=== PATIENT | male | born 1945 | race Two or more races ===

== ENCOUNTER 2024-04-07 07:44 | Day surgery (SDC) | payer MEDICARE ==
[2024-04-07] VITALS (7 sets, daily range): BP systolic 103–145; BP diastolic 60–99; PULSE 60–90; RESP 11–18; TEMP 98.6; O2SAT 94–97
[~2024-04-07] VITALS: Ht 188 cm; Wt 121.9 kg
[2024-04-07] MEDS ORDERED: ceFAZolin 3,000 MG in NS 100ml IVPB x1 dose post-op IV ONE (08:30)
[2024-04-07] MEDS ORDERED: LEVO125C4 PO (08:39)
[2024-04-07] MEDS ORDERED: SITA50TA PO (08:39)
[2024-04-07] MEDS ORDERED: FLO0.4C PO (08:39)
[2024-04-07] MEDS ORDERED: ATOR20TA66 PO (08:39)
[2024-04-07] MEDS ORDERED: ASPI-611 PO (08:39)
[2024-04-07] MEDS ORDERED: NAPR220T67 PO (08:39)
[2024-04-07] MEDS ORDERED: METF-900 PO (08:39)
[2024-04-07] MEDS ORDERED: LISI20TA28 PO (08:39)
[2024-04-07] MEDS: normal saline 1000ml 1,000 ML IV SCH (08:54)
[2024-04-07] MEDS: VANCOMYCIN 1,500MG in normal saline IV soln 300 ML IV ONE (08:54)
[2024-04-07 09:07] LABS: BASOPHILS # (AUTO) 0.1 X10'3 (0-0.2); BASOPHILS % (AUTO) 0.9 % (0-1); EOSINOPHILS # (AUTO) 0.2 X10'3 (0-0.9); EOSINOPHILS % (AUTO) 2.8 % (0-6); HEMATOCRIT 41.5 % (42.0-52.0); HEMOGLOBIN 13.6 g/dl (14.0-17.9); LYMPHOCYTES # (AUTO) 1.2 X10'3 (1.1-4.8); LYMPHOCYTES % (AUTO) 17.2 % (21-51); MEAN CORPUSCULAR HEMOGLOBIN 30.1 PG (27.0-31.0); MEAN CORPUSCULAR HGB CONC 32.8 g/dL (33.0-36.5); MEAN CORPUSCULAR VOLUME 91.7 FL (78-98); MEAN PLATELET VOLUME 9.9 FL (7.4-10.4); MONOCYTES # (AUTO) 0.9 X10'3 (0-0.9); MONOCYTES % (AUTO) 13.1 % (2-12); NEUTROPHILS # (AUTO) 4.6 X10'3 (1.8-7.7); PLATELET COUNT 137 X10'3 (140-440); RED BLOOD COUNT 4.53 X10'6 (4.70-6.10); RED CELL DISTRIBUTION WIDTH 14.3 % (11.5-14.5)
[2024-04-07 09:12] LABS: ALBUMIN 3.4 G/DL (3.4-5.0); ANION GAP 9 (8-16); BLOOD UREA NITROGEN 25 MG/DL (7-18); BUN/CREATININE RATIO 15.2 (10.0-20.0); CALCIUM 8.6 MG/DL (8.5-10.1); CHLORIDE 105 MMOL/L (99-107); CREATININE 1.65 MG/DL (0.60-1.10); GLUCOSE 162 MG/DL (70-104); MAGNESIUM 1.4 MG/DL (1.5-2.4); POTASSIUM 4.7 MMOL/L (3.5-5.1); PROTHROMBIN TIME 10.6 SECONDS (9.0-12.0); SODIUM 140 MMOL/L (135-145); TOTAL CARBON DIOXIDE 26.4 MMOL/L (24-32); eCRCL 44 ML/MIN; eGFR 41 ML/MIN
[2024-04-07] MEDS ORDERED: midazolam 1 mg/ML 2ml injection ONE ×2 (11:54→11:55)
[2024-04-07] MEDS ORDERED: LIDOcaine 1% w/EPI 1:100,000 inj. MDV 50 ML VIAL ONE (11:54)
[2024-04-07] MEDS ORDERED: vancomycin 1,000mg inj ONE (11:55)
[2024-04-07] MEDS ORDERED: fentaNYL/PF 50MCG/1 ML 2ML syringe ONE (11:55)
[2024-04-07] MEDS ORDERED: proCHLORperazine 10 MG/2 ml inj ONE (12:44)
[2024-04-07] MEDS ORDERED: normal saline 1000ml 1,000 ML IV ONE (13:30)
== END 2024-04-07 15:00 | disposition home or self-care (01) ==
LOC: SSTAY O 07:44
PROVIDERS: ATTEND Internal Medicine Cardiovascular Disease
DX: Z45.010 Encounter for checking and testing of cardiac pacemaker pulse generator [battery] (principal); I44.2 Atrioventricular block, complete; I44.7 Left bundle-branch block, unspecified; I10 Essential (primary) hypertension; E11.9 Type 2 diabetes mellitus without complications; E03.9 Hypothyroidism, unspecified; E78.00 Pure hypercholesterolemia, unspecified; Z79.82 Long term (current) use of aspirin; Z79.84 Long term (current) use of oral hypoglycemic drugs; Z79.890 Hormone replacement therapy; Z79.899 Other long term (current) drug therapy; Z98.890 Other specified postprocedural states
CPT/HCPCS: 33228; 36415; 80048; 82948; 83735; 85025; 85610; 93005; 99152; 99153; C1785; J0780; J2250; J3010; J3370; J3490; J7030; J7040; Z7610